=== PATIENT | female | born 1975 | race Caucasian/White ===

== ENCOUNTER 2017-05-14 14:13 | Emergency (ER) | payer MEDICAID ==
[~2017-05-14] VITALS: Wt 65.0 kg
[~2017-05-14 14:13] MED LIST: PREN1TAB49 PO
[2017-05-14] MEDS ORDERED: NAPR-260 PO (15:47)
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
== END 2017-05-14 15:50 | disposition home or self-care (01) ==
LOC: FTE 14:13
DX: M79.605 Pain in left leg (principal)
CPT/HCPCS: 99283

== ENCOUNTER 2017-09-09 17:20 | Emergency (ER) | payer MEDICAID ==
[~2017-09-09] VITALS: Ht 160 cm; Wt 59.6 kg
[~2017-09-09 17:20] MED LIST changes: +NAPR-260 PO
[2017-09-09 17:34] VITALS: Ht 160 cm; Wt 59.6 kg
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
[2017-09-09 20:20] LABS: ADD UMIC YES; UR ASCORBIC ACID 40 mg/dL (NEGATIVE); UR BACTERIA FEW /HPF (NONE SEEN); UR BILIRUBIN (Dip) NEGATIVE (NEGATIVE); UR BLOOD (Dip) 3+ mg/dL (NEGATIVE); UR CLARITY CLOUDY (CLEAR); UR COLOR RED (YELLOW); UR GLUCOSE (Dip) NEGATIVE (NEGATIVE); UR KETONES (Dip) NEGATIVE (NEGATIVE); UR LEUKOCYTE ESTERASE (Dip) 1+ Leu/ul (NEGATIVE); UR MUCUS FEW /HPF (NONE SEEN); UR NITRITE (Dip) NEGATIVE (NEGATIVE); UR RBC > 182 /HPF (0-5); UR SPECIFIC GRAVITY (Dip) 1.019 (1.003-1.030); UR SQUAMOUS EPITHELIAL CELL FEW /HPF (FEW); UR TOTAL PROTEIN (Dip) 2+ mg/dl (NEGATIVE); UR UROBILINOGEN (Dip) NEGATIVE (NEGATIVE)
[2017-09-09] MEDS ORDERED: PHEN-538 PO (20:39)
[2017-09-09] MEDS ORDERED: CEPH-443 PO (20:39)
[2017-09-09] MEDS ORDERED: CEFTRIAXONE 1 GM INJ IM ONE (21:00)
== END 2017-09-09 21:26 | disposition home or self-care (01) ==
LOC: FTE 17:20
DX: N30.01 Acute cystitis with hematuria (principal)
CPT/HCPCS: 81001; 87086; 96372; J0696; Z7502